=== PATIENT | male | born 1955 | race Caucasian/White ===

== ENCOUNTER 2018-04-16 11:40 | Observation (INO) | payer MEDICAID ==
[2018-04-16 12:20] LABS: Hematocrit 43.4 % (42-50); Hemoglobin 14.5 gm/dl (12.5-18.0); Mean Cell Volume 91.4 fl (78-100); Mean Corpuscular Hemoglobin 30.5 pg (26-32); Mean Corpuscular Hgb Concent. 33.4 g/dl (32-36); Mean Platelet Volume 10.3 fl (6-9.5); Platelet Count 197 K/mm3 (150-450); Red Blood Count 4.75 M/mm3 (4.1-5.6); Red Cell Distribution Width 12.8 % (11.5-14.0); White Blood Count 9.2 K/mm3 (4.0-10.5)
[2018-04-16 12:31] LABS: ALBUMIN 4.5 g/dL (3.5-5.0); ALKALINE PHOSPHATASE 115 U/L (38-126); ANION GAP 14.8 MEQ/L (5-15); BLOOD UREA NITROGEN 18 mg/dL (9-20); CHLORIDE 105 mmol/L (98-107); Calcium 9.7 mg/dL (8.4-10.2); Carbon Dioxide 26 mmol/L (22-30); Creatinine 1 1.13 mg/dL (0.66-1.25); Glucose 103 mg/dL (74-106); Potassium 4.4 mmol/L (3.5-5.1); SGOT/AST 16 U/L (17-59); SGPT/ALT 16 U/L (0-50); SODIUM 141 mmol/L (137-145); Total Protein 8.2 g/dL (6.3-8.2)
--- NOTE | 2018-04-16 12:36 | XRAY ---
Indication: Weakness. Multiple contiguous axial images obtained through the head without contrast. Comparison: None Age-appropriate global atrophy and mild periventricular degenerative micro-ischemia bilaterally. Small focus old infarcts left mid parietal lobe and left cerebellum. Smaller foci old infarcts in the right basal ganglia. No acute intracranial hemorrhage, abnormal extra-axial fluid collection, or mass effect. Fourth ventricle is midline without hydrocephalus. Bony calvarium intact. Moderate mucosal thickening of the right maxillary sinus. Remaining visualized paranasal sinuses and mastoid air cells are clear. Impression: 1. No acute intracranial abnormalities. 2. Atrophy and degenerative micro-ischemia. Old infarcts left parietal lobe, left cerebellum, and right basal ganglia. 3. Incidental right maxillary sinus disease. CTDI 68.98
--- NOTE | 2018-04-16 13:40 | ERPHSYRPT ---
- History of Present Illness Time Seen by Provider: 04/16/18 12:15 Source: patient Exam Limitations: clinical condition Patient Subjective Stated Complaint: WEAKNESS AND FORGETFULLNESS OVER LAST WEEK Triage Nursing Assessment: TOE R C/O WEAKNESS AND INCREASING FORGETFULLY FAMILY FRIEND WITH PT AND STATS THIS HAS BEEN OCCURING OVER LAST WEEEK AND PT HAS HAD DECREASE IN ACTIVITY. PT ARRIVES P/W/D RESP EASY NO DEFICIT NOTED TO EITHER SIDE NO FACIAL DROOP. A@[id number] Physician History: PATIENT WITH A HISTORY OF PREVIOUS CVA, CARPENTER PROTOTYPE STATES PATIENT HAS INCREASING FORGETFULLNESS, WEAKNESS, HAD ONSET FACIAL DROOP, UNSTEADY GAIT 5 DAYS AGO. DENIES HEADACHE, BLURRED VISION, SLURRED SPEECH, AND FOCAL WEAKNESS AND NUMBNESS IN EXTREMITIES. Timing/Duration: week(s) Severity: mild Character of Deficits: other (ALTERED MENTAL STATUS) Deficits: no difficulties Baseline/Normal Cognition: alert oriented x 3 Current Cognition: alert oriented x 3 Baseline Gait: walks w/o assistance Associated Symptoms: confusion, other (TRANSIENT COMFUSION) Allergies/Adverse Reactions: No Known Drug Allergies Allergy (Unverified 04/16/18 11:59) Home Medications: No Reportable Medications [No Reported Medications] 04/16/18 [History] - Review of Systems Constitutional: No Fever, No Chills Eyes: No Symptoms Ears, Nose, & Throat: No Symptoms Respiratory: No Symptoms, No Cough, No Dyspnea Cardiac: No Symptoms, No Chest Pain, No Edema, No Syncope Abdominal/Gastrointestinal: Constipation, No Abdominal Pain, No Nausea, No Vomiting, No Diarrhea Genitourinary Symptoms: No Symptoms, No Dysuria Musculoskeletal: No Symptoms, No Back Pain, No Neck Pain Skin: No Rash Neurological: Other (ALTERED MENTAL STATUS), No Dizziness, No Focal Weakness, No Sensory Changes Psychological: No Symptoms Endocrine: No Symptoms All Other Systems: Reviewed and Negative - Past Medical History Pertinent Past Medical History: Yes Neurological History: Stroke - Past Surgical History Past Surgical History: Yes Other Surgical History: COLONOSCOPY WITH PLYPS - Social History Smoking Status: Current every day smoker - Nursing Vital Signs Nursing Vital Signs: Initial Vital Signs Temperature 98.2 F 04/16/18 11:51 Pulse Rate 61 04/16/18 11:51 Respiratory Rate 16 04/16/18 11:51 Blood Pressure 138/80 04/16/18 11:51 O2 Sat by Pulse Oximetry 99 04/16/18 11:51 Pain Scale Pain Intensity 0 - Sabina Coma Scale Best Eye Response (Rosenberg): (4) open spontaneously Best Verbal Response (Rosenberg): (5) oriented Best Motor Response (Rosenberg): (6) obeys commands Sabina Total: 15 - Physical Exam General Appearance: no apparent distress, alert Eye Exam: bilateral eye: PERRL, EOMI Ears, Nose, Throat Exam: normal ENT inspection, moist mucous membranes Neck Exam: normal inspection, non-tender, supple Respiratory: normal breath sounds, lungs clear, airway intact, No respiratory distress Cardiovascular: regular rate/rhythm, No edema Gastrointestinal: soft, No tenderness, No distention Back Exam: normal inspection Extremity Exam: normal inspection, No pedal edema Peripheral Pulses: carotid (R): 2+, carotid (L): 2+, femoral (R): 2+, femoral (L ): 2+, dorsalis-pedis (R): 2+, dorsalis-pedis (L): 2+ Mental Status: alert, oriented x 3, 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 Exam: tongue midline Coordination/Gait: normal finger to nose, normal gait DTR: bicep (R): 2+, bicep (L): 2+, tricep (R): 2+, tricep (L): 2+, knee (R): 2+ , knee (L): 2+, ankle (R): 2+, ankle (L): 2+ Skin Exam: normal color, warm, dry, No rash SpO2 Interpretation: normal SpO2: 99 - CT Exams Head CT Interpretation: Discussed w/radiologist (NO ACUTE INTRACRANIAL ABNORMALITIES , OLD INFARCTS LEFT PARIETAL LOBE, LEFT CEREBELLUM AND RIGHT BASAL GANGLIA), Other (MODERATE MUCOSAL THICKENING OF THE RIGHT MAXILLARY SINUS) Ordered Tests: Active Orders 24 hr Category Date Time Status EKG-ER Only STAT Care 04/16/18 12:02 Active IV Insertion STAT Care 04/16/18 12:41 Active CHEST 1 VIEW (PORTABLE) Stat Exams 04/16/18 13:52 Completed HEAD WITHOUT CONTRAST [CT] Stat Exams 04/16/18 12:18 Completed CBC Stat Lab 04/16/18 12:19 Completed CMP Stat Lab 04/16/18 12:19 Completed MAG [MAGNESIUM] Stat Lab 04/16/18 13:53 Completed TROPONIN Q3H Lab 04/16/18 12:05 Completed TROPONIN Q3H Lab 04/16/18 15:15 Ordered TROPONIN Q3H Lab 04/16/18 18:15 Ordered TROPONIN Q3H Lab 04/16/18 21:15 Ordered UA W/RFX UR CULTURE Stat Lab 04/16/18 12:03 Uncollected Urine Triage Profile Stat Lab 04/16/18 13:48 Uncollected Medication Summary Generic Name Dose Route Start Last Admin Trade Name Freq PRN Reason Stop Dose Admin Aspirin 325 mg 04/16/18 14:01 Ecotrin 325 Mg PO 04/16/18 14:02 STAT ONE Lab/Rad Data: Laboratory Result Diagrams 04/16/18 12:19 04/16/18 12:19 Laboratory Results 04/16/18 04/16/18 04/16/18 Range/Units 13:53 12:19 12:19 WBC 9.2 (4.0-10.5) K/mm3 RBC 4.75 (4.1-5.6) M/mm3 Hgb 14.5 (12.5-18.0) gm/dl Hct 43.4 (42-50) % MCV 91.4 (78-100) fl MCH 30.5 (26-32) pg MCHC 33.4 (32-36) g/dl RDW 12.8 (11.5-14.0) % Plt Count 197 (150-450) K/mm3 MPV 10.3 H (6-9.5) fl Sodium 141 (137-145) mmol/L Potassium 4.4 (3.5-5.1) mmol/L Chloride 105 (98-107) mmol/L Carbon Dioxide 26 (22-30) mmol/L Anion Gap 14.8 (5-15) MEQ/L BUN 18 (9-20) mg/dL Creatinine 1.13 (0.66-1.25) mg/dL Estimated GFR > 60.0 ML/MIN Glucose 103 (74-106) mg/dL Calcium 9.7 (8.4-10.2) mg/dL Magnesium 2.2 (1.6-2.3) mg/dL Total Bilirubin 0.70 (0.2-1.3) mg/dL AST 16 L (17-59) U/L ALT 16 (0-50) U/L Alkaline Phosphatase 115 (38-126) U/L Troponin I (0.000-0.034) ng/mL Serum Total Protein 8.2 (6.3-8.2) g/dL Albumin 4.5 (3.5-5.0) g/dL 04/16/18 Range/Units 12:05 WBC (4.0-10.5) K/mm3 RBC (4.1-5.6) M/mm3 Hgb (12.5-18.0) gm/dl Hct (42-50) % MCV (78-100) fl MCH (26-32) pg MCHC (32-36) g/dl RDW (11.5-14.0) % Plt Count (150-450) K/mm3 MPV (6-9.5) fl Sodium (137-145) mmol/L Potassium (3.5-5.1) mmol/L Chloride (98-107) mmol/L Carbon Dioxide (22-30) mmol/L Anion Gap (5-15) MEQ/L BUN (9-20) mg/dL Creatinine (0.66-1.25) mg/dL Estimated GFR ML/MIN Glucose (74-106) mg/dL Calcium (8.4-10.2) mg/dL Magnesium (1.6-2.3) mg/dL Total Bilirubin (0.2-1.3) mg/dL AST (17-59) U/L ALT (0-50) U/L Alkaline Phosphatase (38-126) U/L Troponin I < 0.012 (0.000-0.034) ng/mL Serum Total Protein (6.3-8.2) g/dL Albumin (3.5-5.0) g/dL - Progress Progress Note: 04/16/18 13:49 ADMINISTERED ASPIRIN 325 MG ORALLY, AND ROCEPHIN 2GM IVPB 04/16/18 13:56 Discussed with : Paula (DISCUSSED WITH DR HODGE AT 1325 FOR OBSERVATION), Other - Departure Time of Disposition: 14:05 Departure Disposition: Observation Clinical Impression: ALTERED MENTAL STATUS, RIGHT MAXILLARY SINUSITUS Condition: Stable Critical Care Time: No Referrals: ROM PALMER [Primary Care Provider] -
--- NOTE | 2018-04-16 13:59 | XRAY ---
Indication: Cough. Comparison: None Portable chest demonstrates normal heart and lungs. Bony thorax intact with mild degenerative changes.
[2018-04-16] MEDS ORDERED: Ecotrin 325 MG PO ONE (14:01)
[2018-04-16] MEDS ORDERED: ROCEPHIN 2 Gm-D5w 50ML BAG** 2 G/50 ML IVPB IV STA (14:03)
[2018-04-16] MEDS ORDERED: ROCEPHIN 2 Gm-D5w 50ML BAG** 2 G/50 ML IVPB IV ONE (14:26)
[2018-04-16] MEDS ORDERED: TYLENOL 325 MG PO PRN (14:43)
[2018-04-16] MEDS: Sodium Chloride 0.9% 1000 ML 1,000 ML IV SCH (15:43)
[2018-04-16] MEDS: Nicoderm CQ 21 MG TOP SCH (17:17)
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
[2018-04-16] MEDS ORDERED: Ativan 1 MG PO PRN (18:56)
[2018-04-16 19:57] LABS: Appearance CLEAR (CLEAR); Bilirubin NEGATIVE (NEGATIVE); Blood NEGATIVE Ery/ul (0-5); Glucose NEGATIVE (NEGATIVE); Ketones NEGATIVE (NEGATIVE); Leukocyte Esterase NEGATIVE (NEGATIVE); Mucus SLIGHT /HPF (NEGATIVE); Nitrite NEGATIVE (NEGATIVE); Protein,Urine Dip NEGATIVE (Negative); Specific Gravity 1.026 (1.005-1.025); Urobilinogen 4 mg/dL (0-1)
[2018-04-16 20:09] LABS: Amphetamine,Urine NEGATIVE (NEGATIVE); Barbiturate,Urine NEGATIVE (NEGATIVE); Benzodiazepine,Urine NEGATIVE (NEGATIVE); Cocaine,Urine NEGATIVE (NEGATIVE); Methadone,Urine NEGATIVE (NEGATIVE); Opiate,Urine NEGATIVE (NEGATIVE); PCP,Urine NEGATIVE (NEGATIVE); THC,Urine NEGATIVE (NEGATIVE)
[2018-04-16 20:29] LABS: Folate (Folic Acid) 7.12 ng/mL (2.76 - >20)
--- NOTE | 2018-04-16 22:40 | XRAY ---
Indication: CVA. Two-dimensional sonogram and color Doppler imaging of the carotid arteries of the neck performed. Comparison: None Examination of the right carotid circulation demonstrates mild scattered heterogeneous plaquing in the distal common carotid artery, bulb, proximal internal carotid, and external carotid arteries. PSV of the CCA is 112 cm/s. PSV of CCA is 50 cm/s. ICA/CCA ratio is 2.2. Normal antegrade vertebral artery flow. Examination of the left carotid circulation demonstrates minimal scattered soft plaquing throughout the common carotid artery. Mild calcified plaquing at the level of the bulb. Moderate calcified lacking at the origin of the external carotid and origin/proximal internal carotid arteries. PSV of the CCA is 62 cm/s. PSV of the ICA is 433 cm/s. ICA/CCA ratio is 6.9. Normal antegrade vertebral artery flow. Impression: Mild/moderate scattered arteriosclerotic plaquing, left greater than right. Velocity measurements and ratios favor greater than 70% stenosis on the left carotid circulation and less than 50% stenosis on the right.
[2018-04-17 05:18] LABS: Hematocrit 40.5 % (42-50); Hemoglobin 13.4 gm/dl (12.5-18.0); Mean Cell Volume 92.3 fl (78-100); Mean Corpuscular Hemoglobin 30.5 pg (26-32); Mean Corpuscular Hgb Concent. 33.1 g/dl (32-36); Platelet Count 178 K/mm3 (150-450); Red Blood Count 4.39 M/mm3 (4.1-5.6); Red Cell Distribution Width 12.9 % (11.5-14.0); White Blood Count 8.2 K/mm3 (4.0-10.5)
[2018-04-17 06:10] LABS: BLOOD UREA NITROGEN 19 mg/dL (9-20); CHLORIDE 108 mmol/L (98-107); Calcium 9.1 mg/dL (8.4-10.2); Carbon Dioxide 25 mmol/L (22-30); Creatinine 1 1.04 mg/dL (0.66-1.25); Glucose 101 mg/dL (74-106); Potassium 4.5 mmol/L (3.5-5.1); SODIUM 142 mmol/L (137-145)
--- NOTE | 2018-04-17 08:16 | XRAY ---
Indication: CVA. Transient confusion. Increased weakness. Unsteady gait. Abnormal carotid ultrasound. Conventional contrast enhanced CTA carotid arteries performed using 80 cc Isovue 370 contrast. Two-dimensional sagittal and coronal reformatted images obtained. Comparison: None Visualized aortic arch is normal in course and caliber without aneurysm/dissection. Normal patent branching right brachiocephalic, left common carotid, and left subclavian arteries. Examination of the right carotid circulation demonstrates widely patent mid to proximal common carotid artery. Minimal eccentric calcified plaquing seen in the distal common carotid artery. At the level of the bulb, there is mild/moderate heterogeneous plaquing producing 50-60% stenosis. Additional heterogeneous plaquing in the proximal internal carotid artery also producing 50-60% stenosis. Near complete occlusion at the origin of the external carotid artery with remaining appearing normal in CTA appearance. Examination of the left carotid circulation demonstrates widely patent common carotid artery. At the level of the bulb, there is mild calcified plaquing producing 20-30% stenosis. Mild heterogeneous plaquing in the proximal internal carotid artery. Sagittal and coronal reformatted images demonstrates focal weblike stenosis in the proximal internal carotid artery with high grade near complete occlusion. Minimal soft plaquing at the origin and proximal external carotid artery producing less than 20% stenosis. Examination of the posterior circulation demonstrates minimal scattered calcified plaquing of the vertebral arteries bilaterally. No critical stenosis, obstruction, or AV malformation. Visualized cervical spine intact with multilevel degenerative endplate spurring. Visualized surrounding soft tissues demonstrates scattered centimeter/subcentimeter cervical lymph nodes bilaterally. Thyroid gland enhances homogeneously. Supra and infraglottic airway widely patent. Patient is edentulous. Moderate mucosal thickening of the right maxillary sinus without fluid leveling. Lung apices demonstrates moderate pulmonary emphysema. Base of the brain unremarkable. Impression: 1. Right carotid circulation demonstrates scattered arteriosclerotic plaquing as detailed. 50-60% stenosis at the level of the bulb and proximal internal carotid artery. Near complete occlusion at the origin of the external carotid artery. 2. Left carotid circulation also demonstrates scattered arteriosclerotic plaquing as detailed. 20-30% stenosis at the level of bulb. Internal carotid artery demonstrates focal weblike high grade stenosis with near complete occlusion. External carotid artery demonstrates less than 20% stenosis. 3. Minimal scattered plaquing throughout both vertebral arteries without critical stenosis/obstruction. 4. Incidental multilevel cervical degenerative spondylosis, right maxillary sinus disease, and pulmonary emphysema. Comment: Preliminary interpretation was made by [facility]. No critical discrepancy. CTDI 32.09
[2018-04-17] MEDS: Nicoderm CQ 21 MG TOP SCH (08:54)
[2018-04-17] MEDS: Ecotrin 325 MG PO SCH (08:54)
[2018-04-17] MEDS: ROCEPHIN 1 Gm-D5w 50 ml Bag** 1 G/50 ML IVPB IV SCH (09:47)
[2018-04-17] MEDS: Sodium Chloride 0.9% 1000 ML 1,000 ML IV SCH (13:05)
--- NOTE | 2018-04-17 15:01 | PCM.NOTE ---
Date and Time: 04/17/18 7161 Subjective Assessment: Pt has no complaints this morning other than he has nothing to do and he generally keeps busy. Tolerating po. Has not been out of bed. Did have CTA carotids and the radiologist called to let us know that he suspects a critical stenosis on the left. Objective Exam General Appearance: no apparent distress, alert Neurologic Exam: oriented x 3, cooperative, other (CN II-XII intact except for CN VIII decreased on L. pt has speech impediment.) Skin Exam: normal color, warm, dry, No rash Ears, Nose, Throat Exam: moist mucous membranes Respiratory Exam: normal breath sounds, lungs clear, No crackles/rales, No rhonchi, No wheezing Cardiovascular Exam: regular rate/rhythm, normal heart sounds, No murmur Gastrointestinal/Abdomen Exam: soft, normal bowel sounds, No tenderness Extremity Exam: No pedal edema, No swelling OBJECTIVE DATA Vital Signs: Vital Signs - 24 hr Temp Pulse Resp BP Pulse Ox 04/17/18 11:42 97.7 F 55 L 17 122/68 98 04/17/18 08:00 97.5 F 56 L 16 142/67 96 04/17/18 04:05 98.2 F 50 L 15 119/65 96 04/17/18 00:18 98.3 F 61 20 110/72 95 04/16/18 19:28 98.2 F 58 L 17 113/55 97 Oxygen-Last 24 hours O2 Percentage 2 Liters = 28% O2 Percentage 2 Liters = 28% O2 Percentage 2 Liters = 28% O2 Percentage 2 Liters = 28% Pain Assessment - Last Documented Pain Intensity 0 Pain Scale Used 0-10 Pain Scale Intake and Output: Intake & Output 04/15/18 04/16/18 04/17/18 04/18/18 11:59 11:59 11:59 11:59 Intake Total 1595 360 Output Total 400 Balance 1195 360 Weight 81 kg 70.4 kg Lab Results: Lab Results-Last 24 Hours 04/16/18 04/16/18 04/16/18 Range/Units 15:13 18:40 18:40 WBC (4.0-10.5) K/mm3 RBC (4.1-5.6) M/mm3 Hgb (12.5-18.0) gm/dl Hct (42-50) % MCV (78-100) fl MCH (26-32) pg MCHC (32-36) g/dl RDW (11.5-14.0) % Plt Count (150-450) K/mm3 MPV (6-9.5) fl Sodium (137-145) mmol/L Potassium (3.5-5.1) mmol/L Chloride (98-107) mmol/L Carbon Dioxide (22-30) mmol/L Anion Gap (5-15) MEQ/L BUN (9-20) mg/dL Creatinine (0.66-1.25) mg/dL Estimated GFR ML/MIN Glucose (74-106) mg/dL Calcium (8.4-10.2) mg/dL Troponin I < 0.012 < 0.012 (0.000-0.034) ng/mL Vitamin B12 446 (239-931) pg/mL Folic Acid 7.12 (2.76 - >20) ng/mL TSH 3rd Generation (0.47-4.68) mIU/L Urine Color (YELLOW) Urine Appearance (CLEAR) Urine pH (5-6) Ur Specific [place] (1.005-1.025) Urine Protein (Negative) Urine Ketones (NEGATIVE) Urine Blood (0-5) Yuriy/ul Urine Nitrite (NEGATIVE) Urine Bilirubin (NEGATIVE) Urine Urobilinogen (0-1) mg/dL Ur Leukocyte Esterase (NEGATIVE) Urine WBC (Auto) (0-5) /HPF Urine RBC (Auto) (0-2) /HPF U Epithel Cells (Auto) (FEW) /HPF Urine Bacteria (Auto) (NEGATIVE) /HPF Urine Mucus (Auto) (NEGATIVE) /HPF Urine Culture Reflexed (NO) Urine Glucose (NEGATIVE) mg/dL Urine Opiates Level (NEGATIVE) Ur Methadone (NEGATIVE) Urine Barbiturates (NEGATIVE) Ur Phencyclidine (PCP) (NEGATIVE) Urine Amphetamine (NEGATIVE) U Benzodiazepine Level (NEGATIVE) Urine Cocaine (NEGATIVE) Urine Marijuana (THC) (NEGATIVE) 04/16/18 04/16/18 04/16/18 Range/Units 19:29 19:29 22:00 WBC (4.0-10.5) K/mm3 RBC (4.1-5.6) M/mm3 Hgb (12.5-18.0) gm/dl Hct (42-50) % MCV (78-100) fl MCH (26-32) pg MCHC (32-36) g/dl RDW (11.5-14.0) % Plt Count (150-450) K/mm3 MPV (6-9.5) fl Sodium (137-145) mmol/L Potassium (3.5-5.1) mmol/L Chloride (98-107) mmol/L Carbon Dioxide (22-30) mmol/L Anion Gap (5-15) MEQ/L BUN (9-20) mg/dL Creatinine (0.66-1.25) mg/dL Estimated GFR ML/MIN Glucose (74-106) mg/dL Calcium (8.4-10.2) mg/dL Troponin I < 0.012 (0.000-0.034) ng/mL Vitamin B12 (239-931) pg/mL Folic Acid (2.76 - >20) ng/mL TSH 3rd Generation (0.47-4.68) mIU/L Urine Color YELLOW (YELLOW) Urine Appearance CLEAR (CLEAR) Urine pH 6.0 (5-6) Ur Specific [place] 1.026 (1.005-1.025) Urine Protein NEGATIVE (Negative) Urine Ketones NEGATIVE (NEGATIVE) Urine Blood NEGATIVE (0-5) Yuriy/ul Urine Nitrite NEGATIVE (NEGATIVE) Urine Bilirubin NEGATIVE (NEGATIVE) Urine Urobilinogen 4 (0-1) mg/dL Ur Leukocyte Esterase NEGATIVE (NEGATIVE) Urine WBC (Auto) 3-5 (0-5) /HPF Urine RBC (Auto) NONE (0-2) /HPF U Epithel Cells (Auto) NONE (FEW) /HPF Urine Bacteria (Auto) NONE (NEGATIVE) /HPF Urine Mucus (Auto) SLIGHT (NEGATIVE) /HPF Urine Culture Reflexed NO (NO) Urine Glucose NEGATIVE (NEGATIVE) mg/dL Urine Opiates Level NEGATIVE (NEGATIVE) Ur Methadone NEGATIVE (NEGATIVE) Urine Barbiturates NEGATIVE (NEGATIVE) Ur Phencyclidine (PCP) NEGATIVE (NEGATIVE) Urine Amphetamine NEGATIVE (NEGATIVE) U Benzodiazepine Level NEGATIVE (NEGATIVE) Urine Cocaine NEGATIVE (NEGATIVE) Urine Marijuana (THC) NEGATIVE (NEGATIVE) 04/17/18 04/17/18 Range/Units 04:50 04:50 WBC 8.2 (4.0-10.5) K/mm3 RBC 4.39 (4.1-5.6) M/mm3 Hgb 13.4 (12.5-18.0) gm/dl Hct 40.5 L (42-50) % MCV 92.3 (78-100) fl MCH 30.5 (26-32) pg MCHC 33.1 (32-36) g/dl RDW 12.9 (11.5-14.0) % Plt Count 178 (150-450) K/mm3 MPV 11.0 H (6-9.5) fl Sodium 142 (137-145) mmol/L Potassium 4.5 (3.5-5.1) mmol/L Chloride 108 H (98-107) mmol/L Carbon Dioxide 25 (22-30) mmol/L Anion Gap 13.0 (5-15) MEQ/L BUN 19 (9-20) mg/dL Creatinine 1.04 (0.66-1.25) mg/dL Estimated GFR > 60.0 ML/MIN Glucose 101 (74-106) mg/dL Calcium 9.1 (8.4-10.2) mg/dL Troponin I (0.000-0.034) ng/mL Vitamin B12 (239-931) pg/mL Folic Acid (2.76 - >20) ng/mL TSH 3rd Generation 1.600 (0.47-4.68) mIU/L Urine Color (YELLOW) Urine Appearance (CLEAR) Urine pH (5-6) Ur Specific [place] (1.005-1.025) Urine Protein (Negative) Urine Ketones (NEGATIVE) Urine Blood (0-5) Yuriy/ul Urine Nitrite (NEGATIVE) Urine Bilirubin (NEGATIVE) Urine Urobilinogen (0-1) mg/dL Ur Leukocyte Esterase (NEGATIVE) Urine WBC (Auto) (0-5) /HPF Urine RBC (Auto) (0-2) /HPF U Epithel Cells (Auto) (FEW) /HPF Urine Bacteria (Auto) (NEGATIVE) /HPF Urine Mucus (Auto) (NEGATIVE) /HPF Urine Culture Reflexed (NO) Urine Glucose (NEGATIVE) mg/dL Urine Opiates Level (NEGATIVE) Ur Methadone (NEGATIVE) Urine Barbiturates (NEGATIVE) Ur Phencyclidine (PCP) (NEGATIVE) Urine Amphetamine (NEGATIVE) U Benzodiazepine Level (NEGATIVE) Urine Cocaine (NEGATIVE) Urine Marijuana (THC) (NEGATIVE) Radiology Exams: Radiology Procedures Category Date Time Status CAROTID BILATERAL [US] Routine Exams 04/16/18 17:19 Completed CHEST 1 VIEW (PORTABLE) Stat Exams 04/16/18 13:[address] ANGIOGRAPHY NECK [CT] Routine Exams 04/17/18 07:00 Completed ECHO W/2D AND DOPPLER [US] Routine Exams 04/16/18 17:19 Taken HEAD WITHOUT CONTRAST [CT] Stat Exams 04/16/18 12:18 Completed Assessment/Plan (1) CVA (cerebral vascular accident) Current Visit: Yes Status: Acute Qualifiers: CVA mechanism: unspecified Qualified Code(s): I63.9 - Cerebral infarction, unspecified Code(s): I63.9 - CEREBRAL INFARCTION, UNSPECIFIED (2) Carotid artery stenosis Current Visit: Yes Status: Acute Qualifiers: Laterality: left Qualified Code(s): I65.22 - Occlusion and stenosis of left carotid artery Assessment & Plan: I called and spoke with Dr. Wilson again to relay the results of the CTA. I advised we need to transfer pt up to on Thursday or he will not return for an appointment or procedure. Will plan to transfer up to hospitalist on Thursday. Code(s): I65.29 - OCCLUSION AND STENOSIS OF UNSPECIFIED CAROTID ARTERY (3) Decreased urination Current Visit: Yes Status: Acute Assessment & Plan: He has had some urine out but unsure how much - will start recording I/O. Renal function is good. Code(s): R34 - ANURIA AND OLIGURIA (4) Tobacco abuse Current Visit: Yes Status: Chronic Code(s): Z72.0 - TOBACCO USE (5) hx polysubstance abuse Current Visit: Yes Status: Chronic (6) Hematochezia Current Visit: Yes Status: Chronic Code(s): K92.1 - MELENA (7) Noncompliance Current Visit: Yes Status: Chronic Code(s): Z91.19 - PATIENT'S NONCOMPLIANCE W OTH MEDICAL TREATMENT AND REGIMEN (8) High risk social situation Current Visit: Yes Status: Chronic Code(s): Z60.9 - PROBLEM RELATED TO SOCIAL ENVIRONMENT, UNSPECIFIED
[2018-04-18] MEDS: Sodium Chloride 0.9% 1000 ML 1,000 ML IV SCH (09:26)
[2018-04-18] MEDS: ROCEPHIN 1 Gm-D5w 50 ml Bag** 1 G/50 ML IVPB IV SCH (09:36)
[2018-04-18] MEDS: Nicoderm CQ 21 MG TOP SCH (09:36)
[2018-04-18] MEDS: Ecotrin 325 MG PO SCH (09:37)
--- NOTE | 2018-04-18 12:22 | PCM.NOTE ---
Date and Time: 04/18/18 1217 Subjective Assessment: Pt did get out of bed x 1 today to go to the bathroom. States he got out of bed some yesterday. Denying any paresthesias or slurred speech at this time. Currently on 2L NC. Dalia po. - Review of Systems Constitutional: No Fever Neurological: No Parasthesia Objective Exam General Appearance: no apparent distress, alert Neurologic Exam: oriented x 3, cooperative Skin Exam: normal color, warm, dry, No rash Eye Exam: eyes nml inspection Respiratory Exam: normal breath sounds, No crackles/rales, No rhonchi, No wheezing Cardiovascular Exam: regular rate/rhythm, No normal heart sounds (distant), No murmur Gastrointestinal/Abdomen Exam: soft, normal bowel sounds, No tenderness, No distention, No mass, No guarding, No rebound Extremity Exam: normal inspection, No pedal edema, No swelling, No tenderness OBJECTIVE DATA Vital Signs: Vital Signs - 24 hr Temp Pulse Resp BP Pulse Ox 04/18/18 11:53 98.1 F 50 L 17 126/64 95 04/18/18 07:38 97.8 F 53 L 18 142/76 97 04/18/18 04:28 97.9 F 51 L 20 147/82 98 04/18/18 00:25 98.2 F 52 L 16 121/64 99 04/17/18 20:38 54 L 16 96 04/17/18 19:20 98.3 F 56 L 16 103/53 96 04/17/18 16:00 98.6 F 60 18 118/65 98 Oxygen-Last 24 hours O2 Percentage 2 Liters = 28% O2 Percentage 2 Liters = 28% O2 Percentage 2 Liters = 28% O2 Percentage 2 Liters = 28% O2 Percentage 2 Liters = 28% O2 Percentage 2 Liters = 28% Pain Assessment - Last Documented Pain Intensity 0 Pain Scale Used 0-10 Pain Scale Intake and Output: Intake & Output 04/16/18 04/17/18 04/18/18 04/19/18 11:59 11:59 11:59 11:59 Intake Total 1595 1080 Output Total 400 1658 575 Balance 5821 -7753 -613 Weight 81 kg 70.4 kg 74.9 kg Radiology Exams: Radiology Procedures Category Date Time Status CAROTID BILATERAL [US] Routine Exams 04/16/18 17:19 Completed CHEST 1 VIEW (PORTABLE) Stat Exams 04/16/18 13:[address] ANGIOGRAPHY NECK [CT] Routine Exams 04/17/18 07:00 Completed ECHO W/2D AND DOPPLER [US] Routine Exams 04/16/18 17:19 Taken HEAD WITHOUT CONTRAST [CT] Stat Exams 04/16/18 12:18 Completed Assessment/Plan (1) CVA (cerebral vascular accident) Current Visit: Yes Status: Acute Qualifiers: CVA mechanism: unspecified Qualified Code(s): I63.9 - Cerebral infarction, unspecified Assessment & Plan: to get up out of bed more Code(s): I63.9 - CEREBRAL INFARCTION, UNSPECIFIED (2) Carotid artery stenosis Current Visit: Yes Status: Acute Qualifiers: Laterality: left Qualified Code(s): I65.22 - Occlusion and stenosis of left carotid artery Assessment & Plan: Possibly critical stenosis per CTA and doppler. Plan is to transfer pt, if able , tomorrow to [facility] so Dr. Wilson can plan a possible carotid procedure. Code(s): I65.29 - OCCLUSION AND STENOSIS OF UNSPECIFIED CAROTID ARTERY (3) Decreased urination Current Visit: Yes Status: Resolved Assessment & Plan: Per friends he does not drink or urinate much at home. However he had 1549 out over the last 12h! His renal function has been great throughout. Code(s): R34 - ANURIA AND OLIGURIA (4) Tobacco abuse Current Visit: Yes Status: Chronic Assessment & Plan: He would love a cigarette but settles for the patch for now. Code(s): Z72.0 - TOBACCO USE (5) hx polysubstance abuse Current Visit: Yes Status: Chronic (6) Hematochezia Current Visit: Yes Status: Chronic Assessment & Plan: Will need workup after carotid issue is resolved - if he will consent to it. Code(s): K92.1 - MELENA (7) Noncompliance Current Visit: Yes Status: Chronic Assessment & Plan: Severely non compliant, had not been to the doctor in years, only came in 10d after this stroke because his family/friends made him. Friends that he lives with insist that he will NOT return for treatment once he is discharged to home , hence the plan to transfer up to [place] for definitive tx for carotids. Code(s): Z91.19 - PATIENT'S NONCOMPLIANCE W OTH MEDICAL TREATMENT AND REGIMEN (8) High risk social situation Current Visit: Yes Status: Chronic Code(s): Z60.9 - PROBLEM RELATED TO SOCIAL ENVIRONMENT, UNSPECIFIED
[2018-04-19] MEDS: Sodium Chloride 0.9% 1000 ML 1,000 ML IV SCH (05:27)
[2018-04-19 06:04] LABS: Hematocrit 40.5 % (42-50); Hemoglobin 13.5 gm/dl (12.5-18.0); Mean Cell Volume 91.6 fl (78-100); Mean Corpuscular Hemoglobin 30.5 pg (26-32); Mean Corpuscular Hgb Concent. 33.3 g/dl (32-36); Mean Platelet Volume 10.7 fl (6-9.5); Platelet Count 175 K/mm3 (150-450); Red Blood Count 4.42 M/mm3 (4.1-5.6); Red Cell Distribution Width 12.5 % (11.5-14.0); White Blood Count 8.4 K/mm3 (4.0-10.5)
[2018-04-19 06:18] LABS: ANION GAP 14.7 MEQ/L (5-15); BLOOD UREA NITROGEN 17 mg/dL (9-20); CHLORIDE 107 mmol/L (98-107); Calcium 9.2 mg/dL (8.4-10.2); Carbon Dioxide 22 mmol/L (22-30); Creatinine 1 0.96 mg/dL (0.66-1.25); Glucose 89 mg/dL (74-106); Potassium 4.2 mmol/L (3.5-5.1); SODIUM 139 mmol/L (137-145)
--- NOTE | 2018-04-19 08:50 | PCM.DS ---
Discharge Summary Date of Admission: 04/16/18 14:42 Admitting Physician: JULIA HODGE Primary Care Provider: ROM ISLAS Allergies Allergies No Known Drug Allergies Allergy (Unverified 04/16/18 11:59) Hospital Summary - Hospital Course Hospital Course: Pt is 63 yo male pt with no local MD (was scheduled to see DR. Islas but has not had an appointment yet) who has not had medical care for years who was admitted through ER with hx 5-10d prior of facial droop, slurred speech, and altered mental status. He had slept mostly x 3d after that. The family finally got him to come to the hospital. He was found on CT to have 3 old CVAs. Echo and carotid dopplers were done the afternoon of admission (Thursday) and the electroencephalographic technician was concerned that he had a critical stenosis on the left. I spoke with Dr. Wilson and he wanted to get a CTA of the carotids to confirm (which it did). I spoke with him again and he wanted the pt to follow up with him in office regarding outpatient surgery. The family is very concerned that he will not follow up outpatient. I discussed this with him, that it is his decision to follow up and pursue surgery if he wants it. He also is a smoker, "I really enjoy smoking" although I discussed that smoking is damaging his vessels and will impair his healing and he may not be able to have surgery if he continues to smoke. I offered to send him home on nicotine patches but he does not seem interested at this time. He does seem somewhat interested in surgery and appears to want to meet with Dr. Wilson in office today. - Vitals & Intake/Output Vital Signs: Vital Signs Temperature 97.6 F 04/19/18 07:50 Pulse Rate 58 L 04/19/18 07:50 Respiratory Rate 18 04/19/18 07:50 Blood Pressure 138/79 04/19/18 07:50 O2 Sat by Pulse Oximetry 97 04/19/18 07:50 Oxygen-Last Documented O2 Percentage 2 Liters = 28% Intake & Output: Intake & Output 04/16/18 04/17/18 04/18/18 04/19/18 11:59 11:59 11:59 11:59 Intake Total 1595 1080 2322 Output Total 400 2424 2525 Balance 1195 -1344 -203 Weight 81 kg 70.4 kg 74.9 kg 73.1 kg - Lab Result Diagrams: 04/19/18 05:15 04/19/18 05:15 Lab Results-Last 24 Hrs: Lab Results-Last 24 Hours 04/19/18 04/19/18 Range/Units 05:15 05:15 WBC 8.4 (4.0-10.5) K/mm3 RBC 4.42 (4.1-5.6) M/mm3 Hgb 13.5 (12.5-18.0) gm/dl Hct 40.5 L (42-50) % MCV 91.6 (78-100) fl MCH 30.5 (26-32) pg MCHC 33.3 (32-36) g/dl RDW 12.5 (11.5-14.0) % Plt Count 175 (150-450) K/mm3 MPV 10.7 H (6-9.5) fl Sodium 139 (137-145) mmol/L Potassium 4.2 (3.5-5.1) mmol/L Chloride 107 (98-107) mmol/L Carbon Dioxide 22 (22-30) mmol/L Anion Gap 14.7 (5-15) MEQ/L BUN 17 (9-20) mg/dL Creatinine 0.96 (0.66-1.25) mg/dL Estimated GFR > 60.0 ML/MIN Glucose 89 (74-106) mg/dL Calcium 9.2 (8.4-10.2) mg/dL - Procedures and Test Procedures and Tests throughout Hospitalization: Therapy Orders & Screens 04/16/18 14:43 EKG [id number] Comment: 04/16/18 20:00 EKG ONCE Comment: Diagnosis: AMS 04/16/18 23:05 Oxygen Nasal Cannula 2 lpm Comment: Diagnosis: AMS 04/17/18 20:38 Respiratory Therapy Assessment DAILY Comment: Diagnosis: AMS Discharge Exam General Appearance: no apparent distress, alert Neurologic Exam: alert, oriented x 3, cooperative, other (waiter/waitress club 5/5 bilat. dorsiflexion and plantar flexion 5/5 bilat.) Skin Exam: normal color, warm, dry, No rash Respiratory Exam: normal breath sounds, lungs clear, No crackles/rales, No rhonchi, No wheezing Cardiovascular Exam: regular rate/rhythm, No normal heart sounds (diminished), No murmur Extremity Exam: normal inspection, No pedal edema, No swelling Back Exam: normal inspection, No rash Final Diagnosis/Problem List - Final Discharge Diagnosis/Problem (1) CVA (cerebral vascular accident) Current Visit: Yes Status: Chronic Assessment & Plan: Will be discharged to f/u with Dr. Wilson today. (2) Carotid artery stenosis Current Visit: Yes Status: Chronic (3) Decreased urination Current Visit: Yes Status: Resolved (4) Tobacco abuse Current Visit: Yes Status: Chronic (5) hx polysubstance abuse Current Visit: Yes Status: Chronic (6) Hematochezia Current Visit: Yes Status: Chronic (7) Noncompliance Current Visit: Yes Status: Chronic (8) High risk social situation Current Visit: Yes Status: Chronic (9) Maxillary sinusitis Current Visit: Yes Status: Acute Assessment & Plan: Has been on IV rocephin for sinusitis. Home on augmentin. (10) Alcohol abuse Current Visit: Yes Status: Acute Assessment & Plan: Drinks 3 hard drinks a day. Has been on CIWA protocol. - Discharge Disposition: Home, Self-Care Condition: Stable Prescriptions: New Amoxicillin/Potassium Clav [Augmentin 875-125 Tablet] 875 mg PO BID PRN #12 tablet Follow up with: ROM ISLAS [Primary Care Provider] - 1 Week
[2018-04-19] MEDS: ROCEPHIN 1 Gm-D5w 50 ml Bag** 1 G/50 ML IVPB IV SCH (10:18)
[2018-04-19] MEDS: Nicoderm CQ 21 MG TOP SCH (10:19)
[2018-04-19] MEDS: Ecotrin 325 MG PO SCH (10:19)
[2018-04-19 11:52] VITALS: BP 102/58; PULSE 65; O2SAT 98
[2018-04-19 15:10] LABS: RPR Screen Non Reactive (Non Reactive)
== END 2018-04-19 12:35 | disposition home or self-care (01) ==
LOC: ED 11:40 → MED SURG 14:42
PROVIDERS: ADMIT Family Medicine; ATTEND Family Medicine
DX: I63.9 Cerebral infarction, unspecified (principal); K92.1 Melena; I65.29 Occlusion and stenosis of unspecified carotid artery; R34 Anuria and oliguria; Z72.0 Tobacco use; F19.10 Other psychoactive substance abuse, uncomplicated; Z91.19 Patient's noncompliance with other medical treatment and regimen; Z60.9 Problem related to social environment, unspecified
CPT/HCPCS: 36000; 36415; 70450; 70498; 71045; 80048; 80053; 80307; 81001; 82607; 82746; 83735; 84443; 84484; 85027; 86592; 86593; 86780; 93005; 93268; 93306; 93880; 94760; 96365; 99285; G0378; J0696; A9270-GY

== ENCOUNTER 2018-05-19 13:54 | Observation (INO) | payer MEDICAID ==
[2018-05-19] MEDS ORDERED: Sodium Chloride 0.9% 1000 ML 1,000 ML ONE (14:48)
[2018-05-19 14:50] LABS: BASOPHIL % 0.5 % (0.0-0.4); Basophil (Absolute #) 0.04 (0-0.4); Eosinophil % 1.7 % (0.00-5.0); Eosinophil (Absolute #) 0.15 (0-0.5); Granulocyte Absolute (ANC) 5.91 (1.4-6.9); Granulocytes % 67.8 % (36.0-66.0); Hematocrit 43.9 % (42-50); Hemoglobin 14.8 gm/dl (12.5-18.0); Lymphocyte (Absolute #) 2.28 (1.0-4.6); Lymphocytes % 26.2 % (24.0-44.0); Mean Cell Volume 88.9 fl (78-100); Mean Corpuscular Hgb Concent. 33.7 g/dl (32-36); Mean Platelet Volume 10.7 fl (6-9.5); Monocyte (Absolute #) 0.33 (0.0-1.3); Monocytes % 3.8 % (0.0-12.0); Platelet Count 191 K/mm3 (150-450); Red Blood Count 4.94 M/mm3 (4.1-5.6); Red Cell Distribution Width 12.9 % (11.5-14.0); White Blood Count 8.7 K/mm3 (4.0-10.5)
[2018-05-19] MEDS: Sodium Chloride 0.9% 1000 ML 1,000 ML IV SCH (14:50)
[2018-05-19 14:51] LABS: INR 1.09 (0.8-3.0); PROTIME 12.7 SECONDS (8.83-12.87)
[2018-05-19 14:52] LABS: ALBUMIN 4.5 g/dL (3.5-5.0); ALKALINE PHOSPHATASE 105 U/L (38-126); ANION GAP 15.6 MEQ/L (5-15); BLOOD UREA NITROGEN 22 mg/dL (9-20); CHLORIDE 101 mmol/L (98-107); Calcium 9.9 mg/dL (8.4-10.2); Carbon Dioxide 28 mmol/L (22-30); Creatinine 1 1.23 mg/dL (0.66-1.25); Glucose 132 mg/dL (74-106); Potassium 4.1 mmol/L (3.5-5.1); SGOT/AST 18 U/L (17-59); SGPT/ALT 15 U/L (0-50); SODIUM 140 mmol/L (137-145); Total Protein 8.1 g/dL (6.3-8.2)
--- NOTE | 2018-05-19 14:57 | XRAY ---
Indication: Cough. Comparison: April 16, 2018. Portable chest remains hyperinflated and clear with a few incidental tiny calcified granulomas. Heart is not enlarged. Bony thorax intact again with mild degenerative changes. Impression: Stable nonacute chest with chronic features.
--- NOTE | 2018-05-19 14:59 | ERPHSYRPT ---
- History of Present Illness Time Seen by Provider: 05/19/18 14:30 Source: patient, family Exam Limitations: clinical condition Patient Subjective Stated Complaint: weakness, sleeping a lot, Triage Nursing Assessment: Pt has been weak and sleeps a lot, family states that he layed in bed for 4 days and didn't even get up to use the restroom, was scanned today to check for cancer in the lungs, smokes, drinks 4-5 whiskey and cokes daily, nephew states that he believes that he has lost 10-15 lbs in the past 2 weeks with no change in appetite, vitals wnl with the exception of respirations in the mid 20's, right sided lungs diminished and not much air passing, left side diminished, denies pain, no pain in abdomen with palpatation , hx of 3 strokes, no edema, nephew states that he has had blood in his stools Physician History: PATIENT WITH A HISTORY OF PREVIOUS CVA, POLYSUBSTANCE AND ALCOHOL ABUSE IN THE PAIN, RECENT LEFT CAROTID ENDARECTOMY, NEPHEW STATES PATIENT APPEARS WEAKER THAN NORMAL, AND IS NO LONGER WELCOME TO LIVE IN HIS FRIEND HOME. PATIENT DENIES HEADACHE, BLURRED VISION, DIZZINESS, DIFFICULTY SWALLOWING OR BREATHING, CHEST PAIN, DYSPNEA, NAUSEA. EMESIS OR DIARRHEA. DENIES NUMBNESS, TINGLING, OR WEAKNESS IN EXTREMITIES. Timing/Duration: day(s) Severity: moderate Character of Deficits: other (WORSENING WEAKNESS) Baseline/Normal Cognition: alert oriented x 3 Current Cognition: alert oriented x 3 Baseline Gait: walks w/o assistance Associated Symptoms: denies symptoms Allergies/Adverse Reactions: No Known Drug Allergies Allergy (Verified 05/19/18 14:26) Home Medications: No Reportable Medications [No Reported Medications] 05/19/18 [History] - Review of Systems Constitutional: No Fever, No Chills Eyes: No Symptoms Ears, Nose, & Throat: No Symptoms Respiratory: No Symptoms, No Cough, No Dyspnea Cardiac: No Symptoms, No Chest Pain, No Edema, No Syncope Abdominal/Gastrointestinal: No Symptoms, No Abdominal Pain, No Nausea, No Vomiting, No Diarrhea Genitourinary Symptoms: No Symptoms, No Dysuria Musculoskeletal: No Symptoms, No Back Pain, No Neck Pain Skin: No Symptoms, No Rash Neurological: No Dizziness, No Focal Weakness, No Sensory Changes Psychological: No Symptoms Endocrine: No Symptoms All Other Systems: Reviewed and Negative - Past Medical History Pertinent Past Medical History: Yes Neurological History: No Pertinent History ENT History: No Pertinent History Cardiac History: No Pertinent History Respiratory History: No Pertinent History Endocrine Medical History: No Pertinent History Musculoskeletal History: No Pertinent History GI Medical History: Polyps History: No Pertinent History Psycho-Social History: No Pertinent History Male Reproductive Disorders: No Pertinent History - Past Surgical History Past Surgical History: No Neuro Surgical History: No Pertinent History Cardiac: No Pertinent History Respiratory: No Pertinent History Gastrointestinal: No Pertinent History Genitourinary: No Pertinent History Musculoskeletal: No Pertinent History Male Surgical History: No Pertinent History Other Surgical History: COLONOSCOPY IN 2001 TO REMOVE POLYPS, removed thumb then put it back on and then removed again - Social History Smoking Status: Current every day smoker How long have you smoked: 45 Exposure to second hand smoke: Yes Drug Use: marijuana, methamphetamines, cocaine Patient Lives Alone: No (staying with different people) - Nursing Vital Signs Nursing Vital Signs: Initial Vital Signs Temperature 97.6 F 05/19/18 14:13 Pulse Rate 68 05/19/18 14:13 Respiratory Rate 26 H 05/19/18 14:13 Blood Pressure 123/72 05/19/18 14:13 O2 Sat by Pulse Oximetry 94 L 05/19/18 14:13 Pain Scale Pain Intensity 4 - Sabina Coma Scale Best Eye Response ([place]): (4) open spontaneously Best Verbal Response ([place]): (5) oriented Best Motor Response ([place]): (6) obeys commands Sabina Total: 15 - Physical Exam General Appearance: no apparent distress, alert Eye Exam: bilateral eye: PERRL, EOMI Ears, Nose, Throat Exam: normal ENT inspection, moist mucous membranes Neck Exam: normal inspection, non-tender, supple Respiratory: normal breath sounds, lungs clear, airway intact, No respiratory distress Cardiovascular: regular rate/rhythm, No edema Gastrointestinal: soft, normal bowel sounds, other (NONTENDER), No tenderness, No distention Rectal Exam: normal exam Back Exam: normal inspection Extremity Exam: normal inspection, No pedal edema Peripheral Pulses: carotid (R): 2+, carotid (L): 2+, femoral (R): 2+, femoral (L ): 2+, dorsalis-pedis (R): 2+, dorsalis-pedis (L): 2+ Mental Status: alert, 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 Exam: normal hearing, normal speech, PERRL, tongue midline Coordination/Gait: normal finger to nose, normal gait Motor/Sensory: no motor deficit, no sensory deficit, no pronator drift, negative Babinski's sign DTR: bicep (R): 2+, bicep (L): 2+, tricep (R): 2+, tricep (L): 2+, knee (R): 2+ , knee (L): 2+, ankle (R): 2+, ankle (L): 2+ Skin Exam: normal color, warm, dry, No rash SpO2 Interpretation: normal SpO2: 94 - Course EKG Interpreted by Me: RATE, Sinus Rhythm, NORMAL AXIS, Left [place] Deviation ( FLAT T WAVES AVL V4 V5) - Radiology Exams Chest X-ray Interpretation: Discussed w/ radiologist, Negative, No Fracture Ordered Tests: Active Orders 24 hr Category Date Time Status Clean Catch Urine Specimen STAT Care 05/19/18 14:36 Active EKG-ER Only STAT Care 05/19/18 14:36 Active IV Insertion STAT Care 05/19/18 14:36 Active CHEST 1 VIEW (PORTABLE) Stat Exams 05/19/18 14:38 Completed CBC W DIFF Stat Lab 05/19/18 14:30 Completed CMP Stat Lab 05/19/18 14:30 Completed Occult Blood, Other Screening Stat Lab 05/19/18 15:12 Completed PROTIME WITH INR Stat Lab 05/19/18 14:30 Completed TROPONIN Q3H Lab 05/19/18 14:30 Completed TROPONIN Q3H Lab 05/19/18 17:45 Ordered TROPONIN Q3H Lab 05/19/18 20:45 Ordered TROPONIN Q3H Lab 05/19/18 23:45 Ordered TROPONIN Q3H Lab 05/20/18 02:45 Ordered UA W/RFX UR CULTURE Stat Lab 05/19/18 14:37 Uncollected Transfer Order Routine Transfer 05/19/18 Ordered Medication Summary Generic Name Dose Route Start Last Admin Trade Name Freq PRN Reason Stop Dose Admin Sodium Chloride 1,000 mls @ 50 mls/hr 05/19/18 14:45 05/19/18 14:50 Sodium Chloride 0.9% 1000 Ml IV 06/18/18 14:44 50 mls/hr .Q20H JOVANY Administration Lab/Rad Data: Laboratory Result Diagrams 05/19/18 14:30 03/20/19 14:30 Laboratory Results 05/19/18 05/19/18 05/19/18 Range/Units 15:12 14:30 14:30 WBC (4.0-10.5) K/mm3 RBC (4.1-5.6) M/mm3 Hgb (12.5-18.0) gm/dl Hct (42-50) % MCV (78-100) fl MCH (26-32) pg MCHC (32-36) g/dl RDW (11.5-14.0) % Plt Count (150-450) K/mm3 MPV (6-9.5) fl Gran % (36.0-66.0) % Eos # (Auto) (0-0.5) Absolute Lymphs (auto) (1.0-4.6) Absolute Monos (auto) (0.0-1.3) Lymphocytes % (24.0-44.0) % Monocytes % (0.0-12.0) % Eosinophils % (0.00-5.0) % Basophils % (0.0-0.4) % Absolute Granulocytes (1.4-6.9) Basophils # (0-0.4) PT 12.7 (8.83-12.87) SECONDS INR 1.09 (0.8-3.0) Sodium (137-145) mmol/L Potassium (3.5-5.1) mmol/L Chloride (98-107) mmol/L Carbon Dioxide (22-30) mmol/L Anion Gap (5-15) MEQ/L BUN (9-20) mg/dL Creatinine (0.66-1.25) mg/dL Estimated GFR ML/MIN Glucose (74-106) mg/dL Calcium (8.4-10.2) mg/dL Total Bilirubin (0.2-1.3) mg/dL AST (17-59) U/L ALT (0-50) U/L Alkaline Phosphatase (38-126) U/L Troponin I < 0.012 (0.000-0.034) ng/mL Serum Total Protein (6.3-8.2) g/dL Albumin (3.5-5.0) g/dL Stool Occult Blood NEGATIVE (Negative) 03/20/19 03/20/19 Range/Units 14:30 14:30 WBC 8.7 (4.0-10.5) K/mm3 RBC 4.94 (4.1-5.6) M/mm3 Hgb 14.8 (12.5-18.0) gm/dl Hct 43.9 (42-50) % MCV 88.9 (78-100) fl MCH 30.0 (26-32) pg MCHC 33.7 (32-36) g/dl RDW 12.9 (11.5-14.0) % Plt Count 191 (150-450) K/mm3 MPV 10.7 H (6-9.5) fl Gran % 67.8 H (36.0-66.0) % Eos # (Auto) 0.15 (0-0.5) Absolute Lymphs (auto) 2.28 (1.0-4.6) Absolute Monos (auto) 0.33 (0.0-1.3) Lymphocytes % 26.2 (24.0-44.0) % Monocytes % 3.8 (0.0-12.0) % Eosinophils % 1.7 (0.00-5.0) % Basophils % 0.5 (0.0-0.4) % Absolute Granulocytes 5.91 (1.4-6.9) Basophils # 0.04 (0-0.4) PT (8.83-12.87) SECONDS INR (0.8-3.0) Sodium 140 (137-145) mmol/L Potassium 4.1 (3.5-5.1) mmol/L Chloride 101 (98-107) mmol/L Carbon Dioxide 28 (22-30) mmol/L Anion Gap 15.6 H (5-15) MEQ/L BUN 22 H (9-20) mg/dL Creatinine 1.23 (0.66-1.25) mg/dL Estimated GFR > 60.0 ML/MIN Glucose 132 H (74-106) mg/dL Calcium 9.9 (8.4-10.2) mg/dL Total Bilirubin 0.60 (0.2-1.3) mg/dL AST 18 (17-59) U/L ALT 15 (0-50) U/L Alkaline Phosphatase 105 (38-126) U/L Troponin I (0.000-0.034) ng/mL Serum Total Protein 8.1 (6.3-8.2) g/dL Albumin 4.5 (3.5-5.0) g/dL Stool Occult Blood (Negative) - Progress Progress Note: 05/19/18 15:38 IV NORMAL SALINE 50ML/HR Discussed with Dr.: Bashir (DISCUSSED WITH DR BASHIR AT 1505 FOR OBSERVATION) - Departure Time of Disposition: 15:46 Departure Disposition: Observation Clinical Impression: GENERALIZED WEAKNESS Condition: Stable Critical Care Time: No Referrals: JULIA HODGE [Primary Care Provider] -
[2018-05-19] MEDS ORDERED: TYLENOL 325 MG PO PRN (16:20)
[2018-05-19] MEDS ORDERED: Zofran 4 MG/2 ML VIAL IV PRN (16:20)
[2018-05-19] MEDS: Nicoderm CQ 21 MG TOP SCH (18:21)
--- NOTE | 2018-05-20 08:50 | PCM.HP ---
History of Present Illness - Chief Complaint Chief Complaint: GENERALIZED WEAKNESS History of Present Illness: is a 63 year old male pt of mine from [facility] with PMHx carotid stenosis (with recent endarterectomy) and CVA x 3, TOB use disorder and polysubstance abuse, hx colon polyps, who came to the ER with family stating he had not been out of bed x 4d, not even to go to the bathroom. He was in the hospital in Apr 2018 with CVA and carotid stenosis; that was his first trip to the doctor in years. He is a very poor historian. He tells me that he could go to the bathroom when he was at home. Today he has no complaints. He would like a nicotine patch. When asked about depression and suicidal ideation, he says first he is "too chicken," then that his neck hurts too much to put a noose around it. - Review of Systems Constitutional: Weakness, Weight Loss (15 lb over past 2 wks per family) Abdominal/Gastrointestinal: No Appetite Changes Psychological: Depression, No Suicidal Ideations All Other Systems: Reviewed and Negative Medications & Allergies Home Medications: Home Medication List No Reportable Medications [No Reported Medications] 05/19/18 [History Confirmed 05/19/18] Allergies/Adverse Reactions: Allergies Allergy/AdvReac Type Severity Reaction Status Date / Time No Known Drug Allergies Allergy Verified 05/19/18 14:26 - Past Medical History Past Medical History: Yes Neurological History: No Pertinent History ENT History: No Pertinent History Cardiac History: No Pertinent History Respiratory History: No Pertinent History Endocrine Medical History: No Pertinent History Musculoskelatal History: No Pertinent History GI Medical History: Polyps History: No Pertinent History Pyscho-Social History: No Pertinent History Male Reproductive Disorders: No Pertinent History - Past Surgical History Past Surgical History: No Neuro Surgical History: No Pertinent History Cardiac History: No Pertinent History Respiratory Surgery: No Pertinent History GI Surgical History: No Pertinent History Genitourinary Surgical Hx: No Pertinent History Musculskeletal Surgical Hx: No Pertinent History Male Surgical History: No Pertinent History Other Surgical History: COLONOSCOPY IN 2001 TO REMOVE POLYPS, removed thumb then put it back on and then removed again - Social History Smoking Status: Current every day smoker How long have you smoked: 45 years Exposure to second hand smoke: Yes Alcohol: Daily Drug Use: marijuana, methamphetamines, cocaine - Physical Exam Vital Signs: Vital Signs - 24 hr Temp Pulse Resp BP Pulse Ox 05/20/18 07:10 97.8 F 74 20 132/66 96 05/20/18 04:00 97.6 F 60 15 130/58 97 05/19/18 23:59 98.3 F 70 17 115/69 95 05/19/18 20:00 97.7 F 69 19 113/60 92 L 05/19/18 17:00 97.6 F 67 20 122/66 97 05/19/18 16:56 97.7 F 67 20 122/66 97 05/19/18 16:10 94 L 05/19/18 15:58 97.6 F 78 20 109/82 97 05/19/18 15:15 69 16 109/82 98 05/19/18 14:13 97.6 F 68 26 H 123/72 94 L General Appearance: no apparent distress, alert Neurologic Exam: oriented x 3, cooperative Eye Exam: eyes nml inspection Ears, Nose, Throat Exam: moist mucous membranes Neck Exam: other (scar on L neck with firmness to palpation) Respiratory Exam: lungs clear, diminished breath sounds, prolonged expirations, No crackles/rales, No rhonchi, No wheezing Cardiovascular Exam: regular rate/rhythm, No normal heart sounds (distant), No murmur Gastrointestinal/Abdomen Exam: soft, normal bowel sounds, No tenderness, No distention, No mass, No guarding, No rebound Extremity Exam: normal inspection, No pedal edema, No swelling Skin Exam: normal color, warm, dry, No rash Results - Labs Lab/Micro Results: Lab Results-Last 24 Hours 05/19/18 05/19/18 05/19/18 Range/Units 14:30 14:30 14:30 WBC 8.7 (4.0-10.5) K/mm3 RBC 4.94 (4.1-5.6) M/mm3 Hgb 14.8 (12.5-18.0) gm/dl Hct 43.9 (42-50) % MCV 88.9 (78-100) fl MCH 30.0 (26-32) pg MCHC 33.7 (32-36) g/dl RDW 12.9 (11.5-14.0) % Plt Count 191 (150-450) K/mm3 MPV 10.7 H (6-9.5) fl Gran % 67.8 H (36.0-66.0) % Eos # (Auto) 0.15 (0-0.5) Absolute Lymphs (auto) 2.28 (1.0-4.6) Absolute Monos (auto) 0.33 (0.0-1.3) Lymphocytes % 26.2 (24.0-44.0) % Monocytes % 3.8 (0.0-12.0) % Eosinophils % 1.7 (0.00-5.0) % Basophils % 0.5 (0.0-0.4) % Absolute Granulocytes 5.91 (1.4-6.9) Basophils # 0.04 (0-0.4) PT 12.7 (8.83-12.87) SECONDS INR 1.09 (0.8-3.0) Sodium 140 (137-145) mmol/L Potassium 4.1 (3.5-5.1) mmol/L Chloride 101 (98-107) mmol/L Carbon Dioxide 28 (22-30) mmol/L Anion Gap 15.6 H (5-15) MEQ/L BUN 22 H (9-20) mg/dL Creatinine 1.23 (0.66-1.25) mg/dL Estimated GFR > 60.0 ML/MIN Glucose 132 H (74-106) mg/dL Calcium 9.9 (8.4-10.2) mg/dL Total Bilirubin 0.60 (0.2-1.3) mg/dL AST 18 (17-59) U/L ALT 15 (0-50) U/L Alkaline Phosphatase 105 (38-126) U/L Troponin I (0.000-0.034) ng/mL Serum Total Protein 8.1 (6.3-8.2) g/dL Albumin 4.5 (3.5-5.0) g/dL Stool Occult Blood (Negative) 05/19/18 05/19/18 Range/Units 14:30 15:12 WBC (4.0-10.5) K/mm3 RBC (4.1-5.6) M/mm3 Hgb (12.5-18.0) gm/dl Hct (42-50) % MCV (78-100) fl MCH (26-32) pg MCHC (32-36) g/dl RDW (11.5-14.0) % Plt Count (150-450) K/mm3 MPV (6-9.5) fl Gran % (36.0-66.0) % Eos # (Auto) (0-0.5) Absolute Lymphs (auto) (1.0-4.6) Absolute Monos (auto) (0.0-1.3) Lymphocytes % (24.0-44.0) % Monocytes % (0.0-12.0) % Eosinophils % (0.00-5.0) % Basophils % (0.0-0.4) % Absolute Granulocytes (1.4-6.9) Basophils # (0-0.4) PT (8.83-12.87) SECONDS INR (0.8-3.0) Sodium (137-145) mmol/L Potassium (3.5-5.1) mmol/L Chloride (98-107) mmol/L Carbon Dioxide (22-30) mmol/L Anion Gap (5-15) MEQ/L BUN (9-20) mg/dL Creatinine (0.66-1.25) mg/dL Estimated GFR ML/MIN Glucose (74-106) mg/dL Calcium (8.4-10.2) mg/dL Total Bilirubin (0.2-1.3) mg/dL AST (17-59) U/L ALT (0-50) U/L Alkaline Phosphatase (38-126) U/L Troponin I < 0.012 (0.000-0.034) ng/mL Serum Total Protein (6.3-8.2) g/dL Albumin (3.5-5.0) g/dL Stool Occult Blood NEGATIVE (Negative) - Radiology Impressions Radiology Exams & Impressions: Radiology Procedures Category Date Time Status CHEST 1 VIEW (PORTABLE) Stat Exams 05/19/18 14:38 Completed - Other Procedures and Tests Respiratory Therapy 05/19/18 17:53 Smoking Cessation Education ONCE Assessment/Plan (1) Weakness Current Visit: Yes Status: Acute Assessment & Plan: PT to consult. His CXR and labs have been nonacute. Code(s): R53.1 - WEAKNESS (2) Weight loss Current Visit: Yes Status: Acute Assessment & Plan: He was supposed to have LDCT of the chest to screen for lung cancer - will get that result. Also, he was supposed to have a colonoscopy - will speak to family about the status of that. Has hx of polyps and family reports recent hematochezia. (3) High risk social situation Current Visit: No Status: Chronic Assessment & Plan: will confirm with whom he is living. Code(s): Z60.9 - PROBLEM RELATED TO SOCIAL ENVIRONMENT, UNSPECIFIED (4) Noncompliance Current Visit: No Status: Chronic Code(s): Z91.19 - PATIENT'S NONCOMPLIANCE W OTH MEDICAL TREATMENT AND REGIMEN (5) Tobacco abuse Current Visit: No Status: Chronic Assessment & Plan: doris Code(s): Z72.0 - TOBACCO USE (6) hx polysubstance abuse Current Visit: No Status: Chronic
[2018-05-20] MEDS: Nicoderm CQ 21 MG TOP SCH (09:28)
[2018-05-20] MEDS: ENOXAPARIN SODIUM SQ SCH (10:45)
[2018-05-20] MEDS: Sodium Chloride 0.9% 1000 ML 1,000 ML IV SCH (10:45)
[2018-05-21 07:37] LABS: BASOPHIL % 0.4 % (0.0-0.4); Basophil (Absolute #) 0.03 (0-0.4); Eosinophil % 5.4 % (0.00-5.0); Eosinophil (Absolute #) 0.45 (0-0.5); Granulocyte Absolute (ANC) 4.28 (1.4-6.9); Hemoglobin 13.7 gm/dl (12.5-18.0); Mean Cell Volume 89.1 fl (78-100); Mean Corpuscular Hemoglobin 29.8 pg (26-32); Mean Corpuscular Hgb Concent. 33.4 g/dl (32-36); Mean Platelet Volume 11.1 fl (6-9.5); Monocyte (Absolute #) 0.52 (0.0-1.3); Monocytes % 6.2 % (0.0-12.0); Platelet Count 159 K/mm3 (150-450); Red Cell Distribution Width 12.6 % (11.5-14.0); White Blood Count 8.4 K/mm3 (4.0-10.5)
[2018-05-21] MEDS: Sodium Chloride 0.9% 1000 ML 1,000 ML IV SCH (07:45)
[2018-05-21 08:01] LABS: ANION GAP 16.4 MEQ/L (5-15); BLOOD UREA NITROGEN 16 mg/dL (9-20); CHLORIDE 107 mmol/L (98-107); Calcium 9.2 mg/dL (8.4-10.2); Carbon Dioxide 22 mmol/L (22-30); Creatinine 1 0.88 mg/dL (0.66-1.25); Glucose 97 mg/dL (74-106); Potassium 4.1 mmol/L (3.5-5.1); SODIUM 141 mmol/L (137-145)
[2018-05-21] MEDS ORDERED: PROVENTIL 2.5 MG/3 ML NEB IH PRN (08:07)
--- NOTE | 2018-05-21 08:11 | PCM.NOTE ---
Date and Time: 05/21/18 0804 Subjective Assessment: He has no complaints today, other than he would like to smoke. Dalia po. I spoke with his neice, Jessica, yesterday. She is concerned about his level of activity and his weight loss. She thinks he may be depressed; apparently he said to her in the past that he had no reason to live. When we speak, he admits readily that he may be depressed. Has never been on depression medicine. - Review of Systems Constitutional: No Fever Abdominal/Gastrointestinal: No Vomiting Objective Exam General Appearance: no apparent distress, alert Neurologic Exam: oriented x 3, cooperative Skin Exam: normal color, warm, dry, No rash Ears, Nose, Throat Exam: moist mucous membranes Respiratory Exam: lungs clear, diminished breath sounds, wheezing (throughout), No crackles/rales, No rhonchi Cardiovascular Exam: regular rate/rhythm, normal heart sounds, No murmur Gastrointestinal/Abdomen Exam: soft, normal bowel sounds, No tenderness, No mass Extremity Exam: normal inspection, No pedal edema, No swelling Back Exam: normal inspection, No rash OBJECTIVE DATA Vital Signs: Vital Signs - 24 hr Temp Pulse Resp BP Pulse Ox 05/21/18 07:51 94 L 05/21/18 07:43 97.9 F 58 L 16 142/78 95 05/20/18 23:55 98.3 F 54 L 13 124/62 97 05/20/18 20:00 97.8 F 60 16 107/53 97 05/20/18 16:24 98 F 78 20 126/80 96 05/20/18 11:08 98 F 78 18 126/74 96 Pain Assessment - Last Documented Pain Intensity 0 Pain Scale Used 0-10 Pain Scale Intake and Output: Intake & Output 05/18/18 05/19/18 05/20/18 05/21/18 11:59 11:59 11:59 11:59 Intake Total 2730 1100 Output Total 1050 850 Balance 1680 250 Weight 67.5 kg Lab Results: Lab Results-Last 24 Hours 05/21/18 05/21/18 Range/Units 04:00 05:20 WBC 8.4 (4.0-10.5) K/mm3 RBC 4.60 (4.1-5.6) M/mm3 Hgb 13.7 (12.5-18.0) gm/dl Hct 41.0 L (42-50) % MCV 89.1 (78-100) fl MCH 29.8 (26-32) pg MCHC 33.4 (32-36) g/dl RDW 12.6 (11.5-14.0) % Plt Count 159 (150-450) K/mm3 MPV 11.1 H (6-9.5) fl Gran % 51.0 (36.0-66.0) % Eos # (Auto) 0.45 (0-0.5) Absolute Lymphs (auto) 3.10 (1.0-4.6) Absolute Monos (auto) 0.52 (0.0-1.3) Lymphocytes % 37.0 (24.0-44.0) % Monocytes % 6.2 (0.0-12.0) % Eosinophils % 5.4 H (0.00-5.0) % Basophils % 0.4 (0.0-0.4) % Absolute Granulocytes 4.28 (1.4-6.9) Basophils # 0.03 (0-0.4) Sodium 141 (137-145) mmol/L Potassium 4.1 (3.5-5.1) mmol/L Chloride 107 (98-107) mmol/L Carbon Dioxide 22 (22-30) mmol/L Anion Gap 16.4 H (5-15) MEQ/L BUN 16 (9-20) mg/dL Creatinine 0.88 (0.66-1.25) mg/dL Estimated GFR > 60.0 ML/MIN Glucose 97 (74-106) mg/dL Calcium 9.2 (8.4-10.2) mg/dL Radiology Exams: Radiology Procedures Category Date Time Status CHEST 1 VIEW (PORTABLE) Stat Exams 05/19/18 14:38 Completed Multi-Disciplinary Progress Notes: Multi-Disciplinary Progress Notes 05/20/18 15:25 (created 05/20/18 18:24) Case Management Note by Aniyah Esquivel CALLED BACK TO INFORM THAT THEY ARE CALLING CORPORATE, PT HAS PRESUMPTIVE MEDICAID ELIGIBILITY. THEY ARE UNSURE IF THEY WILL BE ABLE TO TAKE HIM, BUT HOPEFUL THEY CAN MAKE ACCOMMODATIONS. SHE WILL CALL BACK TOMORROW. Initialized on 05/20/18 18:24 - END OF NOTE 05/20/18 10:00 (created 05/20/18 18:23) Case Management Note by Aniyah Esquivel DISCHARGE PLAN REVIEWED WITH PT. PT IS HAVING TROUBLE CARING FOR HIMSELF. HAS BEEN LIVING WITH FRIENDS. DISCUSSED GOING TO [employer] [facility]. PT IS AGREEABLE FOR THIS PLAN. REPORTS THAT HIS MOTHER IS AT [facility], AND THAT HE WOULD LIKE TO GO THERE TOO. CALL TO [facility] AND SPOKE WITH A[place]. [place]IN TO EVAL TODAY. Initialized on 05/20/18 18:23 - END OF NOTE Assessment/Plan (1) Weakness Current Visit: Yes Status: Chronic Assessment & Plan: Await PT recommendations; pt is somewhat willing to do rehab at [facility], although he is concerned about the cost. Code(s): R53.1 - WEAKNESS (2) Weight loss Current Visit: Yes Status: Acute Assessment & Plan: His LDCT was negative. Has been counseled to stop smoking. His colonoscopy has been recheduled to the second week of May. PSA was ordered yesterday. (3) High risk social situation Current Visit: No Status: Chronic Assessment & Plan: Would like for him to go to outpatient rehab, LTCF. Code(s): Z60.9 - PROBLEM RELATED TO SOCIAL ENVIRONMENT, UNSPECIFIED (4) Noncompliance Current Visit: No Status: Chronic Code(s): Z91.19 - PATIENT'S NONCOMPLIANCE W OTH MEDICAL TREATMENT AND REGIMEN (5) Tobacco abuse Current Visit: No Status: Chronic Code(s): Z72.0 - TOBACCO USE (6) hx polysubstance abuse Current Visit: No Status: Chronic (7) Depression Current Visit: Yes Status: Chronic Qualifiers: Depression Type: major depressive disorder Major depression recurrence: single episode Active/Remission status: currently active Major depression episode severity: moderate Qualified Code(s): F32.1 - Major depressive disorder, single episode, moderate Assessment & Plan: Could be mild to severe; unsure how many of his current sx could be caused by depression. Will start pt on wellbutrin. Code(s): F32.9 - MAJOR DEPRESSIVE DISORDER, SINGLE EPISODE, UNSPECIFIED
[2018-05-21] MEDS ORDERED: Wellbutrin XL 150 MG PO SCH (10:00)
[2018-05-21] MEDS: Nicoderm CQ 21 MG TOP SCH (10:32)
[2018-05-21] MEDS: ENOXAPARIN SODIUM SQ SCH (10:34)
[2018-05-21 15:50] VITALS: PULSE 64; O2SAT 96
--- NOTE | 2018-05-21 16:35 | PCM.DS ---
Discharge Summary Date of Admission: 05/19/18 16:19 Admitting Physician: MUMTAZ BASHIR Primary Care Provider: JULIA HODGE Allergies Allergies No Known Drug Allergies Allergy (Verified 05/19/18 14:26) Hospital Summary - Hospital Course Hospital Course: Pt is a 63 yo male pt of mine from [facility] recent CVA and carotid endarterectomy, hx tob use and polysubs abus, hx alcohol abuse, who was recently brought to ER by his family c/o 4d of lying on the couch even to the point of soiling his clothes. He was evaluated in ER and his labs were non acute. CXR neg. UA neg. He was admitted for further observation. PT evaluated him and found he did need some assistance up to the bathroom with a walker; they recommended LTCF placement but he is not able to be approved at this time due to insurance status. His other concerning issue is weight loss; his LDCT was neg this week. Has colonoscopy scheduled in 2 weeks. Had PSA drawn while here. He does seem to be depressed and was started on wellbutrin here. Will be discharged to home for now. - Vitals & Intake/Output Vital Signs: Vital Signs Temperature 97.8 F 05/21/18 15:49 Pulse Rate 64 05/21/18 15:49 Respiratory Rate 18 05/21/18 15:49 Blood Pressure 120/58 05/21/18 15:49 O2 Sat by Pulse Oximetry 96 05/21/18 15:49 Intake & Output: Intake & Output 05/19/18 05/20/18 05/21/18 05/22/18 11:59 11:59 11:59 11:59 Intake Total 2730 1340 360 Output Total 1050 850 Balance 1680 490 360 Weight 67.5 kg - Lab Result Diagrams: 05/21/18 04:00 05/21/18 05:20 Lab Results-Last 24 Hrs: Lab Results-Last 24 Hours 05/21/18 05/21/18 Range/Units 04:00 05:20 WBC 8.4 (4.0-10.5) K/mm3 RBC 4.60 (4.1-5.6) M/mm3 Hgb 13.7 (12.5-18.0) gm/dl Hct 41.0 L (42-50) % MCV 89.1 (78-100) fl MCH 29.8 (26-32) pg MCHC 33.4 (32-36) g/dl RDW 12.6 (11.5-14.0) % Plt Count 159 (150-450) K/mm3 MPV 11.1 H (6-9.5) fl Gran % 51.0 (36.0-66.0) % Eos # (Auto) 0.45 (0-0.5) Absolute Lymphs (auto) 3.10 (1.0-4.6) Absolute Monos (auto) 0.52 (0.0-1.3) Lymphocytes % 37.0 (24.0-44.0) % Monocytes % 6.2 (0.0-12.0) % Eosinophils % 5.4 H (0.00-5.0) % Basophils % 0.4 (0.0-0.4) % Absolute Granulocytes 4.28 (1.4-6.9) Basophils # 0.03 (0-0.4) Sodium 141 (137-145) mmol/L Potassium 4.1 (3.5-5.1) mmol/L Chloride 107 (98-107) mmol/L Carbon Dioxide 22 (22-30) mmol/L Anion Gap 16.4 H (5-15) MEQ/L BUN 16 (9-20) mg/dL Creatinine 0.88 (0.66-1.25) mg/dL Estimated GFR > 60.0 ML/MIN Glucose 97 (74-106) mg/dL Calcium 9.2 (8.4-10.2) mg/dL - Procedures and Test Procedures and Tests throughout Hospitalization: Therapy Orders & Screens 05/19/18 17:53 OT Screen per Nursing Assess ONCE Comment: Protocol Order Physician Instructions: Greater than 3 points order OT Admission Screening Reason For Exam: Triggered on Admission Diagnosis: GENERALIZED WEAKNESS Open Wound/Cellutlitis/Pressure Ulcers: No Acute Fx/ORIF/Change in wt bearing status: No Severe MUSCULOSKELETAL pain: No ADL Dysfunction: Yes Acute CVA w/Hemiparesis/Hemiplegia: No Decreased Functional Mobility/Strength: Yes Sprain/Strain: No Acute Post-op Mobility Dysfunction: No Total Points: 4 PT Screen per Nursing Assess ONCE Comment: Protocol Order Physician Instructions: Greater than 3 points order PT Admission Screenin Reason For Exam: Triggered on Admission Diagnosis: GENERALIZED WEAKNESS Open Wound/Cellutlitis/Pressure Ulcers: No Acute Fx/ORIF/Change in wt bearing status: No Severe MUSCULOSKELETAL pain: No ADL Dysfunction: Yes Acute CVA w/Hemiparesis/Hemiplegia: No Decreased Functional Mobility/Strength: Yes Sprain/Strain: No Acute Post-op Mobility Dysfunction: No Total Points: 4 Smoking Cessation Education ONCE Comment: Diagnosis: GENERALIZED WEAKNESS Smoking Status: Current every day smoker How long have you smoked: 45 years Have you smoked in the past 12 months: Yes Approximately how many cigarettes per day: 1 PPD Do you dip or chew tobacco: No 05/20/18 08:53 PT Eval & Treat (MD Order) ROUTINE Reason for Eval:: weakness Diagnosis: GENERALIZED WEAKNESS Discharge Exam General Appearance: no apparent distress, alert, other (exam done this morning) Neurologic Exam: oriented x 3, cooperative Skin Exam: normal color, warm, dry, No rash Eye Exam: eyes nml inspection Ears, Nose, Throat Exam: moist mucous membranes Neck Exam: normal inspection, other (well healing scar L neck) Respiratory Exam: normal breath sounds, lungs clear, No crackles/rales, No rhonchi, No wheezing Cardiovascular Exam: regular rate/rhythm, normal heart sounds, No murmur Gastrointestinal/Abdomen Exam: soft, normal bowel sounds, No tenderness, No distention, No mass, No guarding, No rebound Extremity Exam: No pedal edema, No swelling Back Exam: normal inspection, No rash Final Diagnosis/Problem List - Final Discharge Diagnosis/Problem (1) Weakness Current Visit: Yes Status: Chronic Assessment & Plan: This appears to be improved; may be related to underlying process that is causing the weight loss, or may be related to depression. Code(s): R53.1 - WEAKNESS (2) Weight loss Current Visit: Yes Status: Acute Assessment & Plan: had LDCT chest, having colonoscopy, PSA pending. (3) High risk social situation Current Visit: No Status: Chronic Code(s): Z60.9 - PROBLEM RELATED TO SOCIAL ENVIRONMENT, UNSPECIFIED (4) Noncompliance Current Visit: No Status: Chronic Code(s): Z91.19 - PATIENT'S NONCOMPLIANCE W OTH MEDICAL TREATMENT AND REGIMEN (5) Tobacco abuse Current Visit: No Status: Chronic Code(s): Z72.0 - TOBACCO USE (6) hx polysubstance abuse Current Visit: No Status: Chronic (7) Depression Current Visit: Yes Status: Chronic Assessment & Plan: started wellbutrin. f/u with me in 1 week. No suicidal ideation. Code(s): F32.9 - MAJOR DEPRESSIVE DISORDER, SINGLE EPISODE, UNSPECIFIED - Discharge Disposition: Home, Self-Care Condition: Stable Prescriptions: New Albuterol Sulfate [Albuterol Sulfate Hfa] 8.5 gm IH Q4H PRN #1 hfa.[id number].[id number] PRN Reason: SOB or cough Bupropion HCl Xl 150 mg [Wellbutrin XL 150 MG] 150 mg PO DAILY #30 tablet Follow up with: JULIA HODGE [Primary Care Provider] - 05/28/18 11:15 am
[2018-05-21 20:10] VITALS: BP 120/64
[2018-05-22 07:54] LABS: Prostate Specific Antigen 0.94 ng/mL (<=4.50)
== END 2018-05-21 21:11 | disposition home or self-care (01) ==
LOC: ED 13:54 → MED SURG 16:19
PROVIDERS: ADMIT Family Medicine; ATTEND Family Medicine
DX: R53.1 Weakness (principal); R63.4 Abnormal weight loss; Z60.9 Problem related to social environment, unspecified; Z91.19 Patient's noncompliance with other medical treatment and regimen; Z72.0 Tobacco use; F32.9 Major depressive disorder, single episode, unspecified; Z86.73 Personal history of transient ischemic attack (TIA), and cerebral infarction without residual deficits; F19.11 Other psychoactive substance abuse, in remission
CPT/HCPCS: 36000; 36415; 71045; 80048; 80053; 82272; 84153; 84154; 84484; 85025; 85610; 93005; 93268; 94762; 96360; 97110; 97161; 99285; G0378; 96374; J1650; A9270-GY

== ENCOUNTER 2018-06-09 06:11 | Day surgery (SDC) | payer MEDICAID ==
[2018-06-09] MEDS ORDERED: DIPRIVAN 200 MG/20 ML IV ONE (06:12)
[2018-06-09] MEDS ORDERED: Lactated Ringers 1,000 ML IV SCH (06:30)
[2018-06-09] MEDS ORDERED: Lactated Ringers 1,000 ML IV ONE (07:52)
--- NOTE | 2018-06-09 08:27 | OP ---
SURGERY DATE/TIME: 06/09/2018 0708 PREOPERATIVE DIAGNOSIS: History of colon polyps. POSTOPERATIVE DIAGNOSIS: Sigmoid colon polyps x10. PROCEDURE: Colonoscopy. SURGEON: Abran Canales M.D. ANESTHESIA: MAC by Jordan Gamboa CRNA. ESTIMATED BLOOD LOSS: Minimal. SPECIMENS: Ten hot forceps polypectomies all from the distal sigmoid colon. DESCRIPTION OF PROCEDURE: After informed written consent was obtained, the patient was taken to the endoscopy suite. He underwent monitored anesthesia and digital rectal exam showed normal sphincter tone and no internal lesions. The scope was inserted into the rectum and sequentially the entire colonic mucosa was traversed. The level of cecum was reached and verified with direct visualization of ileocecal valve. Upon withdrawal no obvious lesions were encountered but there was semisolid and liquid stool present throughout multiple areas of the colon. In the distal sigmoid there were multiple small sessile polyps all removed with hot forceps in their entirety with good hemostasis. Prior to withdrawal retroflexion was performed and showed no internal lesions. The scope was removed and the patient was transferred to the recovery room in good condition. Advised to follow up in a week for pathology results.
[2018-06-09 08:34] VITALS: O2SAT 97
[2018-06-09 08:44] VITALS: BP 127/71; PULSE 59
== END 2018-06-09 09:07 | disposition home or self-care (01) ==
LOC: SDC 06:11
PROVIDERS: ATTEND Family Medicine
DX: D12.5 Benign neoplasm of sigmoid colon (principal); K63.5 Polyp of colon; Z86.010 Personal history of colon polyps
CPT/HCPCS: 88305; J2704